=== PATIENT | male | born 1945 | race Caucasian/White ===

== ENCOUNTER 2018-11-17 12:35 | Emergency (ER) | payer OTHER, MEDICAID ==
[~2018-11-17] VITALS: Ht 180.3 cm; Wt 86.2 kg
[2018-11-17 12:35] VITALS: BP_SYST 134
[2018-11-17 13:28] LABS: BASOPHILS % (AUTO) 0.7 % (0.0-2.0); EOSINOPHILS % (AUTO) 0.6 % (0.0-4.0); HEMATOCRIT 38.1 % (36-54); HEMOGLOBIN 12.5 g/dL (14.0-18.0); LYMPHOCYTES # (AUTO) 1.6 K/uL (1.0-5.5); LYMPHOCYTES % (AUTO) 43.9 % (20.5-51.5); MEAN CORPUSCULAR HEMOGLOBIN 30 pg (27-31); MEAN CORPUSCULAR HGB CONC 33 % (32-36); MEAN CORPUSCULAR VOLUME 90 fL (79.0-98.0); MONOCYTES # (AUTO) 0.4 K/uL (0.0-1.0); MONOCYTES % (AUTO) 12.3 % (1.7-9.3); NEUTROPHILS # (AUTO) 1.5 K/uL (1.8-7.7); PLATELET COUNT (AUTO) 89 K/uL (130-430); RED BLOOD CELL COUNT(AUTO) 4.25 MIL/uL (4.2-6.2); RED CELL DISTRIBUTION WIDTH 16.3 % (9.0-15.0); WHITE BLOOD COUNT (AUTO) 3.6 K/uL (4.8-10.8)
[2018-11-17 13:38] LABS: ALANINE AMINOTRANSFERASE 87 U/L (12-78); ALBUMIN 3.1 g/dL (3.4-4.8); ANION GAP 7 (5-15); ASPARTATE AMINOTRANSFERASE 95 U/L (10-37); CALCIUM 8.2 mg/dL (8.4-11.0); CHLORIDE 107 mmol/L (98-107); CREATININE 0.78 mg/dL (0.55-1.30); GLUCOSE 91 mg/dL (70-99); LIPASE 167 U/L (73-393); POTASSIUM 4.2 mmol/L (3.5-5.1); SODIUM SERUM 139 mmol/L (136-145); TOTAL BILIRUBIN 0.5 mg/dL (0.0-1.0); UREA NITROGEN, BLOOD 11 mg/dL (8-21)
[2018-11-17 13:55] LABS: NEUTROPHILS % (AUTO) 42.5 % (40.0-70.0)
[2018-11-17 18:10] VITALS: BP_SYST 130
== END 2018-11-17 18:07 | disposition home or self-care (01) ==
LOC: SED 12:35
DX: R10.31 Right lower quadrant pain (principal); I10 Essential (primary) hypertension
CPT/HCPCS: 36415; 80053; 83690-TC; 85025; 99284